=== PATIENT | female | born 1960 | race Caucasian/White ===

== ENCOUNTER 2017-05-20 08:55 | Emergency (ER) | payer OTHER ==
[~2017-05-20] VITALS: Ht 157.5 cm; Wt 125.7 kg
[~2017-05-20 08:55] MED LIST: ABILIFY10 MG PO; ABILIFY5 MG PO; ADVAIR 250/501 DISK IH; ALPRAZOLAM0.5 MG PO; AMARYL1 MG PO; AMARYL2 MG PO; AMITRIPTYLINE H75 MG PO; AMITRIPTYLINE150 MG PO; AMOXICILLIN500 MG PO; ASPIRIN81 M2 PO; ATENOLOL-CHLOR1 EACH PO; Advair HFA 115/21 IH; BREO ELLIPTA I1 EACH IH; BUSPAR15 MG PO; BUSPIRONE HCL15 MG PO; CELEBREX200 MG PO; CILOSTAZOL50 MG PO; CITRACAL + BON1 EACH PO; CYANOCOBAL1000 MCG/2 IM; CYANOCOBALAM1000 MCG PO; CYMBALTA60 MG PO; Cymbalta PO; FLINTSTONES CO1 EAC1 PO; FLUCONAZOLE150 MG PO; FUROSEMIDE40 MG PO; GLUCOPHAGE XR750 MG PO; GLUCOPHAGE500 MG PO; HYDROCODON-ACE1 EAC7 PO; K-TAB10 MEQ PO; LOSARTAN POTAS100 MG PO; LOSARTAN POTASS50 MG PO; LYRICA300 MG PO; METFORMIN HCL1000 MG PO; NICODERM CQ1 EAC2 TD; OMEPRAZOLE40 M1 PO; POTASSIUM CHLO10 MEQ PO; PROVIGIL200 MG PO; TYLENOL EXTRA500 MG PO; VENTOLIN HFA18 GM IH; Vibramycin, Doryx PO
[2017-05-20 09:16] LABS: POINT-OF-CARE METER ID UU14100415
[2017-05-20 10:06] LABS: MCH 29.8 PG (29.0-34.0); MCHC 32.1 G/DL (30.0-36.0); MCV 92.9 FL (83-99); MEAN PLAT.VOLUME 10.2 uM^3 (9.5-12.4); PLATELET COUNT 278 K/uL (156-360); RBC DIS.WIDTH-CV 14.6 % (11.8-14.6); WHITE BLOOD COUNT 17.6 K/uL (4.1-10.2)
[2017-05-20 10:20] LABS: CHLORIDE 108 mEq/L (99-109); SODIUM 141 mEq/L (136-147)
[2017-05-20 10:22] LABS: GLUCOSE 181 mg/dL (70-99)
[2017-05-20 10:23] LABS: ANION GAP 14 MEQ/L (2-14)
[2017-05-20 10:24] LABS: TOTAL BILIRUBIN 0.6 mg/dL (0.0-1.0)
[2017-05-20 10:25] LABS: ALKALINE PHOSPHATASE 85 IU/L (3-129)
[2017-05-20 10:26] LABS: D-DIMER ELISA 0.63 mg/L FEU (< 0.57); GFR ESTIMATE (CALCULATED) > 59 mL/min/
[2017-05-20 10:27] LABS: UREA NITROGEN (BUN) 44 mg/dL (9-23)
[2017-05-20 10:29] LABS: LIPASE 7 U/L (1.0-51.0)
[2017-05-20 10:33] LABS: TROP-I INTERPRETATION NEGATIVE; TROPONIN-I 0.02 ng/mL (0.0-0.30)
[2017-05-20 12:38] LABS: ADD MIUA? YES; BILIRUBIN NEGATIVE; BLOOD LARGE; COLOR YELLOW ((YELLOW)); GLUCOSE (STRIP) NEGATIVE; KETONES NEGATIVE; LEUKOCYTES LARGE; NITRITE NEGATIVE; PROTEIN (STRIP) NEGATIVE; SPECIFIC GRAVITY 1.041 (1.000-1.030); UROBILINOGEN 0.2 MG/DL (0.2-1.0)
[2017-05-20 13:08] LABS: BACTERIA RARE /HPF; CALCIUM OXALATE CRYSTALS 1+ /HPF; EPITHELIAL CELLS RARE /HPF; HYALINE CASTS 0-5 /LPF; MUCUS NONE SEEN /LPF; RED BLOOD CELLS 20-30 /HPF (0-5); UCUL ADDED? NO
[2017-05-20] MEDS ORDERED: MACROBID100 MG PO (14:16)
[2017-05-20 15:13] VITALS: BP 110/56
== END 2017-05-20 15:17 | disposition home or self-care (01) ==
LOC: EME 08:55
PROVIDERS: Emergency Medicine
DX: N39.0 Urinary tract infection, site not specified (principal); J44.9 Chronic obstructive pulmonary disease, unspecified; I10 Essential (primary) hypertension; E11.9 Type 2 diabetes mellitus without complications; Z79.84 Long term (current) use of oral hypoglycemic drugs; K21.9 Gastro-esophageal reflux disease without esophagitis; G43.909 Migraine, unspecified, not intractable, without status migrainosus; F17.200 Nicotine dependence, unspecified, uncomplicated; Z98.84 Bariatric surgery status
CPT/HCPCS: 71010; 71275; 74177; 80053; 81003; 82948; 83605; 83690; 84484; 85027; 85379; 87040; 93005; 99281; 99285; J2270; J2405; J2543; J7030

== ENCOUNTER 2017-05-29 09:50 | Inpatient (IN) | payer OTHER ==
[~2017-05-29] VITALS: Ht 157.5 cm; Wt 130.9 kg
[~2017-05-29 09:50] MED LIST changes: +MACROBID100 MG PO
[2017-05-29 11:28] LABS: BASE EXCESS 2.6 mEq/L (-3 to +3); BICARBONATE 26.1 mEq/L (22-26); CARBOXY HGB 5.9 % (0-5); METHEMOGLOBIN 0.7 % (0-1.5); PO2 59 mm Hg (80-100)
[2017-05-29 11:29] LABS: COMMENTS - BLOOD GASES C+; DEVICE NC; O2 FLOW 2 L/MIN; PCO2 35 mm Hg (35-45); SITE LB; TOTAL RESP RATE 40 resp/min; pH 7.48 (7.35-7.45)
[2017-05-29 11:56] LABS: HEMATOCRIT 26.8 % (36.0-46.0); MCH 29.2 PG (29.0-34.0); MCHC 31.3 G/DL (30.0-36.0); MCV 93.1 FL (83-99); MEAN PLAT.VOLUME 9.5 uM^3 (9.5-12.4); RBC DIS.WIDTH-CV 15.3 % (11.8-14.6); RED BLOOD COUNT 2.88 M/uL (3.80-5.20)
[2017-05-29 11:59] LABS: PLATELET COUNT 333 K/uL (156-360)
[2017-05-29 12:04] LABS: CHLORIDE 107 mEq/L (99-109); POTASSIUM 3.4 mEq/L (3.7-5.4); SODIUM 140 mEq/L (136-147)
[2017-05-29 12:06] LABS: GLUCOSE 120 mg/dL (70-99)
[2017-05-29 12:07] LABS: ANION GAP 9 MEQ/L (2-14)
[2017-05-29 12:08] LABS: TOTAL BILIRUBIN 0.3 mg/dL (0.0-1.0)
[2017-05-29 12:09] LABS: ALKALINE PHOSPHATASE 91 IU/L (3-129)
[2017-05-29 12:10] LABS: GFR ESTIMATE (CALCULATED) > 59 mL/min/
[2017-05-29 12:11] LABS: UREA NITROGEN (BUN) 10 mg/dL (9-23)
[2017-05-29] MEDS ORDERED: PANTOPRAZOLE SO40 MG PO (13:14)
[2017-05-29] MEDS ORDERED: MULTIPLE VITAM1 EACH PO (13:14)
[2017-05-29] MEDS ORDERED: METFORMIN HCL500 M1 PO (13:15)
[2017-05-29] MEDS ORDERED: LOSARTAN POTASS50 MG PO (13:16)
[2017-05-29] MEDS ORDERED: SUCRALFATE1 GM PO (13:16)
[2017-05-29 14:12] LABS: TROP-I INTERPRETATION NEGATIVE; TROPONIN-I < 0.01 ng/mL (0.0-0.30)
[2017-05-29 19:35] VITALS: BP 115/56
[2017-05-29 21:34] LABS: TROP-I INTERPRETATION NEGATIVE; TROPONIN-I < 0.01 ng/mL (0.0-0.30)
[2017-05-29 22:40] VITALS: BP 103/59
[2017-05-30 01:03] LABS: TROP-I INTERPRETATION NEGATIVE; TROPONIN-I < 0.01 ng/mL (0.0-0.30)
[2017-05-30 03:44] VITALS: BP 107/54
[2017-05-30 06:05] LABS: HEMATOCRIT 28.7 % (36.0-46.0); MCH 29.2 PG (29.0-34.0); MCV 94.1 FL (83-99); MEAN PLAT.VOLUME 9.8 uM^3 (9.5-12.4); PLATELET COUNT 318 K/uL (156-360); RBC DIS.WIDTH-CV 15.7 % (11.8-14.6); RBC DIS.WIDTH-SD 53.1 % (39-53); RED BLOOD COUNT 3.05 M/uL (3.80-5.20); WHITE BLOOD COUNT 11.6 K/uL (4.1-10.2)
[2017-05-30 06:27] LABS: ANION GAP 10 MEQ/L (2-14); CHLORIDE 109 MEQ/L (99-109); SAMPLE HEMOLYSIS CHECK 0; SAMPLE ICTERIC CHECK 0; SAMPLE LIPEMIA CHECK 0; SODIUM 141 MEQ/L (136-147)
[2017-05-30 06:32] LABS: GFR ESTIMATE (CALCULATED) > 59 mL/min/; GLUCOSE 150 mg/dL (70-99); POTASSIUM 4.2 MEQ/L (3.7-5.4); UREA NITROGEN (BUN) 11 mg/dL (9-23)
[2017-05-30 06:53] VITALS: BP 161/68
[2017-05-30 07:37] LABS: INTERNAL CONTROL VALID? YES
[2017-05-30 07:53] LABS: IMM.RETIC FRACTION 21.6 % (3-19)
[2017-05-30 07:55] LABS: RETIC HGB EQUIVALENT 21.4 (28-36); RETICULOCYTE COUNT 4.8 % (0.5-1.8)
[2017-05-30 08:10] LABS: FERRITIN 21 NG/ML (10-291)
[2017-05-30 11:05] VITALS: BP 141/64
[2017-05-30 15:18] VITALS: BP 126/58
[2017-05-30 18:50] VITALS: BP 113/56
[2017-05-30 22:35] VITALS: BP 112/56
[2017-05-31 04:38] VITALS: BP 132/68
[2017-05-31 06:09] LABS: HEMATOCRIT 26.1 % (36.0-46.0); MCH 29.5 PG (29.0-34.0); MCHC 31.4 G/DL (30.0-36.0); MCV 93.9 FL (83-99); MEAN PLAT.VOLUME 10.1 uM^3 (9.5-12.4); PLATELET COUNT 337 K/uL (156-360); RBC DIS.WIDTH-CV 15.8 % (11.8-14.6); RBC DIS.WIDTH-SD 54.4 % (39-53); RED BLOOD COUNT 2.78 M/uL (3.80-5.20); WHITE BLOOD COUNT 13.9 K/uL (4.1-10.2)
[2017-05-31 06:37] LABS: ANION GAP 7 MEQ/L (2-14); CHLORIDE 106 MEQ/L (99-109); GFR ESTIMATE (CALCULATED) > 59 mL/min/; GLUCOSE 135 mg/dL (70-99); POTASSIUM 4.4 MEQ/L (3.7-5.4); SAMPLE HEMOLYSIS CHECK 0; SAMPLE ICTERIC CHECK 0; SAMPLE LIPEMIA CHECK 0; SODIUM 140 MEQ/L (136-147); UREA NITROGEN (BUN) 17 mg/dL (9-23)
[2017-05-31 07:25] VITALS: BP 146/85
[2017-05-31 15:30] VITALS: BP 144/74
[2017-06-01 00:33] VITALS: BP 131/76
[2017-06-01 07:21] LABS: ANION GAP 8 MEQ/L (2-14); CHLORIDE 105 MEQ/L (99-109); GFR ESTIMATE (CALCULATED) > 59 mL/min/; GLUCOSE 156 mg/dL (70-99); POTASSIUM 4.3 MEQ/L (3.7-5.4); SAMPLE HEMOLYSIS CHECK 0; SAMPLE ICTERIC CHECK 0; SAMPLE LIPEMIA CHECK 0; SODIUM 140 MEQ/L (136-147); UREA NITROGEN (BUN) 16 mg/dL (9-23)
[2017-06-01 07:27] VITALS: BP 140/76
[2017-06-01] MEDS ORDERED: FUROSEMIDE20 MG PO (13:29)
[2017-06-01] MEDS ORDERED: DELTASONE20 M1 PO (13:29)
[2017-06-01] MEDS ORDERED: AUGMENTIN875 MG PO (13:30)
== END 2017-06-01 14:43 | disposition home or self-care (01) | DRG 190 ==
LOC: EME 09:50 → EDOF 12:49 → 5EAST 12:49 → EDOF 13:08 → 5EAST 19:12 → ENPENDDIS 06-01 → 5EAST 06-01 14:43
PROVIDERS: Emergency Medicine; Hospitalist; Internal Medicine
PROC: 5A09357 Assistance with Respiratory Ventilation, Less than 24 Consecutive Hours, Continuous Positive Airway Pressure (ICD-10-PCS; principal; 2017-05-29)
DX: J44.0 Chronic obstructive pulmonary disease with (acute) lower respiratory infection (principal); J96.01 Acute respiratory failure with hypoxia; J44.1 Chronic obstructive pulmonary disease with (acute) exacerbation; J18.9 Pneumonia, unspecified organism; G47.33 Obstructive sleep apnea (adult) (pediatric); F17.200 Nicotine dependence, unspecified, uncomplicated; E78.5 Hyperlipidemia, unspecified; D50.9 Iron deficiency anemia, unspecified; C96.6 Unifocal Langerhans-cell histiocytosis; I11.0 Hypertensive heart disease with heart failure; I50.33 Acute on chronic diastolic (congestive) heart failure; E11.40 Type 2 diabetes mellitus with diabetic neuropathy, unspecified; K21.9 Gastro-esophageal reflux disease without esophagitis; E66.9 Obesity, unspecified; Z68.43 Body mass index [BMI] 50.0-59.9, adult; I34.0 Nonrheumatic mitral (valve) insufficiency
CPT/HCPCS: 36600; 71020; 80048; 80053; 82607; 82728; 82746; 82803; 82948; 83880; 84484; 85027; 85045; 87040; 87070; 87205; 87449; 93005; 93306; 94640; 94640 76; 94644; 94660; 94664; 94760; 94799; 99202; 99281; 99285; J0696; J1650; J1815; J1940; J2920; J7030; J7050; J7512

== ENCOUNTER → 2017-07-21 | Outpatient (CLI) | payer OTHER ==
[~2017-07-21] MED LIST changes: +AUGMENTIN875 MG PO; +DELTASONE20 M1 PO; +FUROSEMIDE20 MG PO; +METFORMIN HCL500 M1 PO; +MULTIPLE VITAM1 EACH PO; +PANTOPRAZOLE SO40 MG PO; +SUCRALFATE1 GM PO
== END | disposition home or self-care (01) ==
LOC: NUC 07-07 08:30
DX: R06.00 Dyspnea, unspecified (principal); I50.9 Heart failure, unspecified
CPT/HCPCS: 78452; 93017; A9500; J2785

== ENCOUNTER → 2017-08-08 | Outpatient (CLI) | payer OTHER ==
[~2017-08-08] VITALS: Ht 157.5 cm; Wt 124.7 kg
[~2017-08-08] MED LIST changes: +COZAAR50 MG PO; +LASIX20 MG PO; +NUVIGIL150 MG PO
[2017-08-08 11:14] LABS: HEMATOCRIT 36.6 % (36.0-46.0); MCH 21.6 PG (29.0-34.0); MCHC 29.2 G/DL (30.0-36.0); MCV 73.9 FL (83-99); MEAN PLAT.VOLUME 9.4 uM^3 (9.5-12.4); PLATELET COUNT 383 K/uL (156-360); RBC DIS.WIDTH-CV 19.9 % (11.8-14.6); RBC DIS.WIDTH-SD 51.3 % (39-53); RED BLOOD COUNT 4.95 M/uL (3.80-5.20); WHITE BLOOD COUNT 9.8 K/uL (4.1-10.2)
[2017-08-08 11:22] LABS: POINT-OF-CARE METER ID UU14107333
== END | disposition home or self-care (01) ==
LOC: AMB 08-01 12:00
PROVIDERS: Surgery
PROC: 0DJ08ZZ Inspection of Upper Intestinal Tract, Via Natural or Artificial Opening Endoscopic (ICD-10-PCS; principal; 2017-08-08)
DX: K29.60 Other gastritis without bleeding (principal); K31.89 Other diseases of stomach and duodenum; Z98.84 Bariatric surgery status; G47.33 Obstructive sleep apnea (adult) (pediatric); J44.9 Chronic obstructive pulmonary disease, unspecified; E11.40 Type 2 diabetes mellitus with diabetic neuropathy, unspecified; I10 Essential (primary) hypertension; E78.5 Hyperlipidemia, unspecified; J84.82 Adult pulmonary Langerhans cell histiocytosis; D75.1 Secondary polycythemia; Z79.84 Long term (current) use of oral hypoglycemic drugs; Z79.82 Long term (current) use of aspirin
CPT/HCPCS: 82948; 85027; J2250

== ENCOUNTER 2018-05-25 11:13 | Emergency (ER) | payer OTHER ==
[~2018-05-25] VITALS: Ht 157.5 cm; Wt 120.8 kg
[2018-05-25 11:39] VITALS: BP 139/73
== END 2018-05-25 12:11 | disposition left against medical advice (07) ==
LOC: EME 11:13
DX: I10 Essential (primary) hypertension (principal); Z53.21 Procedure and treatment not carried out due to patient leaving prior to being seen by health care provider